=== PATIENT | female | born 1960 | race Caucasian/White ===

== ENCOUNTER 2018-08-23 13:07 | Inpatient (IN) | payer MEDICAID, MEDICARE ==
[~2018-08-23] VITALS: Ht 157.5 cm; Wt 85.0 kg
[2018-08-23] MEDS ORDERED: normal saline 1000ML IV soln IVB ONE (13:15)
[2018-08-23] MEDS ORDERED: LORazepam 2 mg/ml vial IV ONE (13:15)
[2018-08-23 13:35] LABS: BASOPHILS # (AUTO) 0.1 X10'3 (0-0.2); BASOPHILS % (AUTO) 0.9 % (0-1); EOSINOPHILS # (AUTO) 0.1 X10'3 (0-0.9); EOSINOPHILS % (AUTO) 0.5 % (0-6); HEMATOCRIT 42.4 % (35.0-45.0); HEMOGLOBIN 13.8 g/dl (12.0-16.0); LYMPHOCYTES # (AUTO) 1.4 X10'3 (1.1-4.8); LYMPHOCYTES % (AUTO) 8.4 % (21-51); MEAN CORPUSCULAR HEMOGLOBIN 27.8 PG (27.0-31.0); MEAN CORPUSCULAR HGB CONC 32.7 g/dL (33.0-36.5); MEAN CORPUSCULAR VOLUME 85.1 FL (78-98); MONOCYTES # (AUTO) 1.1 X10'3 (0-0.9); MONOCYTES % (AUTO) 6.7 % (2-12); NEUTROPHILS # (AUTO) 13.5 X10'3 (1.8-7.7); NEUTROPHILS % (AUTO) 83.5 % (42-75); PLATELET COUNT 292 X10'3 (140-440); RED BLOOD COUNT 4.98 X10'6 (4.20-5.60); RED CELL DISTRIBUTION WIDTH 14.9 % (11.5-14.5); WHITE BLOOD COUNT 16.2 X10'3 (4.5-11.0)
[2018-08-23 13:43] LABS: ALANINE AMINOTRANSFERASE 21 U/L (12-78); ALBUMIN 4.1 G/DL (3.4-5.0); ALKALINE PHOSPHATASE 84 IU/L (46-116); ANION GAP 15 (8-16); ASPARTATE AMINO TRANSFERASE 32 U/L (10-37); BILIRUBIN,TOTAL 0.8 MG/DL (0.1-1.0); BLOOD UREA NITROGEN 23 MG/DL (7-18); BUN/CREATININE RATIO 14.7 (6.6-38.0); CALCIUM 10.2 MG/DL (8.5-10.1); CHLORIDE 102 MMOL/L (99-107); CREATININE 1.56 MG/DL (0.40-0.90); GLUCOSE 111 MG/DL (70-104); POTASSIUM 3.2 MMOL/L (3.5-5.1); SODIUM 139 MMOL/L (135-145); TOTAL CARBON DIOXIDE 22.3 MMOL/L (24-32); TOTAL PROTEIN 8.2 G/DL (6.4-8.2); eGFR 34 ML/MIN
[2018-08-23 13:52] LABS: ETHANOL < 0.010 GM/DL (0.0-0.010)
[2018-08-23 15:04] LABS: CLARITY,URINE SLIGHTLY CLOUDY (Clear); COLOR,URINE YELLOW (Yellow); GLUCOSE, URINE NEGATIVE (Neg); KETONES,URINE >=80 mg/dl (Neg); LEUKOCYTE ESTERASE ,URINE NEGATIVE (Neg); NITRITES, URINE NEGATIVE (Neg); OCCULT BLOOD,URINE MODERATE (Neg); PH,URINE 5.5 (4.8-8.0); PROTEIN,URINE NEGATIVE (Neg); UA COLLECTION TYPE STRAIGHT CATH; UROBILINOGEN,URINE 0.2 E.U/dL (0.2-1.0)
[2018-08-23 15:09] LABS: URINE AMPHETAMINE SCREEN NEGATIVE (Neg); URINE BARBITUATE SCREEN NEGATIVE (Neg); URINE BENZODIAZEPINES SCREEN NEGATIVE (Neg); URINE CANNABINOID SCREEN POSITIVE (Neg); URINE COCAINE SCREEN NEGATIVE (Neg); URINE METHADONE SCREEN NEGATIVE (Neg); URINE OPIATE SCREEN NEGATIVE (Neg); URINE PHENCYCLIDINE SCREEN NEGATIVE (Neg)
[2018-08-23 15:10] LABS: WBC,URINE 0-4 /HPF (0-4)
[2018-08-23 15:11] LABS: BACTERIA,URINE FEW /HPF (Neg); MUCUS STRANDS FEW /LPF (Neg); SQUAMOUS EPITHELIAL CELL,UR FEW /LPF (FEW)
[2018-08-23] MEDS ORDERED: CefTRIAXone 2gm/D5W 50ml 50 ML IV ONE (15:20)
[2018-08-23] MEDS ORDERED: ondansetron/PF 4mg/2ml inj IV PRN (16:20)
[2018-08-23] MEDS ORDERED: magnesium hydroxide 30ml (MOM) UD suspension PO PRN (16:20)
[2018-08-23] MEDS ORDERED: mag hydrox/Alum hydrox/simeth 30ml oral suspension PO PRN (16:20)
[2018-08-23] MEDS: potassium Cl 20mEq in NS 1,000 ML IV SCH (16:43)
--- NOTE | 2018-08-23 18:03 | NUR ---
Pt new to floor from ED. Transferred up on [facility]. Constant redirection. pt transferred safely into bed. pt is a 51/50/green blanket supplied/SITTER in room at all times. Fluids hanging/L arm. Potassium 20. 100mL/hr. Pt exhibits high and low behaviour, disjointed conversation. (Marty) assessed pt. Cellulitis to E. Leg is red, warm, tender to the touch. No open wounds. Pt needs Tele monitor. Reported off to [facility] nurse to do full assessment/admit/DART if needed. Addendum: 08/23/18 at 1837 by Shawnee Dykes RN Report given to PHILIP Zavaleta to admit pt, fully assess pt.
[2018-08-23 18:39] VITALS: BP 117/57
[2018-08-23] MEDS: heparin, porcine 5000 units/ml vial SQ SCH (21:43)
[2018-08-23] MEDS: LORazepam 2 mg/ml vial IV PRN (21:50)
[2018-08-23 22:00] VITALS: BP 110/67
[2018-08-24] MEDS: LORazepam 2 mg/ml vial IV PRN ×3 (03:14→17:25)
[2018-08-24] MEDS: potassium Cl 20mEq in NS 1,000 ML IV SCH (03:16)
[2018-08-24 06:20] LABS: BASOPHILS # (AUTO) 0.1 X10'3 (0-0.2); BASOPHILS % (AUTO) 1.1 % (0-1); EOSINOPHILS # (AUTO) 0.4 X10'3 (0-0.9); EOSINOPHILS % (AUTO) 4.2 % (0-6); HEMATOCRIT 35.3 % (35.0-45.0); HEMOGLOBIN 11.7 g/dl (12.0-16.0); LYMPHOCYTES # (AUTO) 2.1 X10'3 (1.1-4.8); MEAN CORPUSCULAR HEMOGLOBIN 28.5 PG (27.0-31.0); MEAN CORPUSCULAR HGB CONC 33.3 g/dL (33.0-36.5); MEAN CORPUSCULAR VOLUME 85.7 FL (78-98); MEAN PLATELET VOLUME 8.1 FL (7.4-10.4); MONOCYTES # (AUTO) 0.9 X10'3 (0-0.9); MONOCYTES % (AUTO) 9.3 % (2-12); NEUTROPHILS # (AUTO) 6.2 X10'3 (1.8-7.7); NEUTROPHILS % (AUTO) 63.4 % (42-75); PLATELET COUNT 254 X10'3 (140-440); RED BLOOD COUNT 4.12 X10'6 (4.20-5.60); WHITE BLOOD COUNT 9.7 X10'3 (4.5-11.0)
--- NOTE | 2018-08-24 06:23 | NUR ---
Report given to Cassie PALACIOS.
[2018-08-24 06:37] LABS: ALBUMIN 2.9 G/DL (3.4-5.0); ANION GAP 11 (8-16); BLOOD UREA NITROGEN 15 MG/DL (7-18); CALCIUM 8.3 MG/DL (8.5-10.1); CHLORIDE 108 MMOL/L (99-107); CREATININE 1.15 MG/DL (0.40-0.90); GLUCOSE 87 MG/DL (70-104); POTASSIUM 3.6 MMOL/L (3.5-5.1); SODIUM 142 MMOL/L (135-145); eGFR 48 ML/MIN
[2018-08-24 06:49] VITALS: BP 119/58
[2018-08-24] MEDS: CefTRIAXone 2gm/D5W 50ml 50 ML IV SCH (07:19)
[2018-08-24] MEDS: heparin, porcine 5000 units/ml vial SQ SCH ×2 (07:19→19:59)
[2018-08-24] MEDS: normal saline 1000ml 1,000 ML IV SCH (10:19)
[2018-08-24] MEDS ORDERED: NO HOME MEDS (10:44)
[2018-08-24 12:40] VITALS: BP 124/69
[2018-08-24 18:00] VITALS: BP 109/71
--- NOTE | 2018-08-24 18:10 | NUR ---
Patient in room ORTHO 4013. I have received report from PHILIP Matthews and had the opportunity to ask questions and assume patient care.
[2018-08-24] MEDS: acetaminophen 325mg tablet PO PRN (19:59)
[2018-08-24] MEDS: lactobacillus rhamnosus 10,000 MMU CELLS/CAPSULE PO SCH (19:59)
[2018-08-24] MEDS: ipratropium/albuterol 3ml nebule NEB PRN (20:34)
[2018-08-24 22:00] VITALS: BP 107/68
[2018-08-25] MEDS: normal saline 1000ml 1,000 ML IV SCH ×2 (01:14→16:27)
[2018-08-25] MEDS: ipratropium/albuterol 3ml nebule NEB PRN (02:13)
[2018-08-25] MEDS: acetaminophen 325mg tablet PO PRN ×2 (04:19→19:47)
[2018-08-25 06:00] VITALS: BP 107/69
--- NOTE | 2018-08-25 06:05 | NUR ---
Patient in room ORTHO 4013. I have received report from Shelby PALACIOS and had the opportunity to ask questions and assume patient care.
--- NOTE | 2018-08-25 06:10 | NUR ---
Problems reprioritized. Patient report given, questions answered & plan of care reviewed with PHILIP Silver.
[2018-08-25 06:32] LABS: BASOPHILS # (AUTO) 0.1 X10'3 (0-0.2); EOSINOPHILS # (AUTO) 0.4 X10'3 (0-0.9); EOSINOPHILS % (AUTO) 5.2 % (0-6); HEMATOCRIT 33.7 % (35.0-45.0); HEMOGLOBIN 11.4 g/dl (12.0-16.0); LYMPHOCYTES # (AUTO) 2.4 X10'3 (1.1-4.8); LYMPHOCYTES % (AUTO) 34.1 % (21-51); MEAN CORPUSCULAR HEMOGLOBIN 28.9 PG (27.0-31.0); MEAN CORPUSCULAR HGB CONC 33.7 g/dL (33.0-36.5); MEAN CORPUSCULAR VOLUME 85.7 FL (78-98); MEAN PLATELET VOLUME 7.8 FL (7.4-10.4); MONOCYTES # (AUTO) 0.7 X10'3 (0-0.9); MONOCYTES % (AUTO) 10.2 % (2-12); NEUTROPHILS # (AUTO) 3.4 X10'3 (1.8-7.7); NEUTROPHILS % (AUTO) 49.5 % (42-75); PLATELET COUNT 233 X10'3 (140-440); RED BLOOD COUNT 3.93 X10'6 (4.20-5.60); RED CELL DISTRIBUTION WIDTH 14.9 % (11.5-14.5); WHITE BLOOD COUNT 6.9 X10'3 (4.5-11.0)
[2018-08-25 06:45] LABS: ALBUMIN 2.9 G/DL (3.4-5.0); ANION GAP 5 (8-16); BLOOD UREA NITROGEN 11 MG/DL (7-18); BUN/CREATININE RATIO 10.2 (6.6-38.0); CALCIUM 8.5 MG/DL (8.5-10.1); CHLORIDE 108 MMOL/L (99-107); CREATININE 1.08 MG/DL (0.40-0.90); GLUCOSE 96 MG/DL (70-104); POTASSIUM 3.4 MMOL/L (3.5-5.1); SODIUM 138 MMOL/L (135-145); TOTAL CARBON DIOXIDE 24.6 MMOL/L (24-32); eGFR 52 ML/MIN
[2018-08-25] MEDS: lactobacillus rhamnosus 10,000 MMU CELLS/CAPSULE PO SCH ×2 (07:28→19:47)
[2018-08-25] MEDS: CefTRIAXone 2gm/D5W 50ml 50 ML IV SCH (07:28)
[2018-08-25] MEDS: heparin, porcine 5000 units/ml vial SQ SCH ×2 (07:28→19:47)
[2018-08-25 10:00] VITALS: BP 103/45
[2018-08-25] MEDS ORDERED: traMADol 50MG tablet PO PRN (11:40)
[2018-08-25] MEDS ORDERED: potassium CL 10mEq/100ml bag 100 ML IV PRN (11:40)
[2018-08-25] MEDS ORDERED: potassium Cl 20 mEq SR tablet PO PRN (11:40)
[2018-08-25] MEDS: potassium Cl 20 mEq SR tablet PO PRN ×3 (12:24→20:24)
--- NOTE | 2018-08-25 12:31 | NUR ---
PAGER ID: [phone] MESSAGE: Dr. Huerta, Ms. De La Rosa in [id number], indicated Tramadol gives her a headache. Is there an alternative medication for her? Thank you Adrianne # [phone]
[2018-08-25] MEDS: albuterol 2.5 MG/3 ML nebule NEB SCH ×4 (13:13→23:43)
[2018-08-25] MEDS: HYDROcodone/acetaminophen 5mg/325mg tablet PO PRN (13:36)
[2018-08-25 18:00] VITALS: BP 92/50
--- NOTE | 2018-08-25 18:20 | NUR ---
Patient in room ORTHO 4013. I have received report from PHILIP Silver and had the opportunity to ask questions and assume patient care.
--- NOTE | 2018-08-25 18:22 | NUR ---
Problems reprioritized. Patient report given, questions answered & plan of care reviewed with Shelby PALACIOS.
[2018-08-25 22:00] VITALS: BP 113/44
[2018-08-26] MEDS: HYDROcodone/acetaminophen 5mg/325mg tablet PO PRN (01:15)
[2018-08-26] MEDS: albuterol 2.5 MG/3 ML nebule NEB SCH ×3 (03:00→11:38)
[2018-08-26] MEDS: normal saline 1000ml 1,000 ML IV SCH ×2 (04:04→08:38)
[2018-08-26 06:00] VITALS: BP 117/42
[2018-08-26 06:02] LABS: BASOPHILS # (AUTO) 0.1 X10'3 (0-0.2); BASOPHILS % (AUTO) 0.8 % (0-1); EOSINOPHILS # (AUTO) 0.3 X10'3 (0-0.9); EOSINOPHILS % (AUTO) 4.9 % (0-6); HEMOGLOBIN 11.3 g/dl (12.0-16.0); LYMPHOCYTES # (AUTO) 2.5 X10'3 (1.1-4.8); LYMPHOCYTES % (AUTO) 35.3 % (21-51); MEAN CORPUSCULAR HEMOGLOBIN 28.5 PG (27.0-31.0); MEAN CORPUSCULAR HGB CONC 33.3 g/dL (33.0-36.5); MEAN CORPUSCULAR VOLUME 85.8 FL (78-98); MEAN PLATELET VOLUME 8.1 FL (7.4-10.4); MONOCYTES # (AUTO) 0.6 X10'3 (0-0.9); MONOCYTES % (AUTO) 8.7 % (2-12); NEUTROPHILS # (AUTO) 3.5 X10'3 (1.8-7.7); NEUTROPHILS % (AUTO) 50.3 % (42-75); PLATELET COUNT 254 X10'3 (140-440); RED BLOOD COUNT 3.96 X10'6 (4.20-5.60); RED CELL DISTRIBUTION WIDTH 15.2 % (11.5-14.5)
--- NOTE | 2018-08-26 06:10 | NUR ---
Patient in room ORTHO 4013. I have received report from Shelby PALACIOS and had the opportunity to ask questions and assume patient care.
--- NOTE | 2018-08-26 06:19 | NUR ---
Problems reprioritized. Patient report given, questions answered & plan of care reviewed with PHILIP Silver.
[2018-08-26 06:35] LABS: ALBUMIN 2.9 G/DL (3.4-5.0); ANION GAP 8 (8-16); BLOOD UREA NITROGEN 12 MG/DL (7-18); BUN/CREATININE RATIO 12.5 (6.6-38.0); CALCIUM 8.7 MG/DL (8.5-10.1); CHLORIDE 108 MMOL/L (99-107); CREATININE 0.96 MG/DL (0.40-0.90); GLUCOSE 103 MG/DL (70-104); POTASSIUM 3.9 MMOL/L (3.5-5.1); SODIUM 139 MMOL/L (135-145); TOTAL CARBON DIOXIDE 22.8 MMOL/L (24-32); eGFR 59 ML/MIN
[2018-08-26] MEDS: CefTRIAXone 2gm/D5W 50ml 50 ML IV SCH (08:38)
[2018-08-26] MEDS: heparin, porcine 5000 units/ml vial SQ SCH (08:43)
[2018-08-26] MEDS: lactobacillus rhamnosus 10,000 MMU CELLS/CAPSULE PO SCH (08:43)
--- NOTE | 2018-08-26 08:51 | NUR ---
Patient tele DC'd patient in normal sinus rhythm and has been, normal labs, not heart history.
[2018-08-26 10:00] VITALS: BP 158/89
--- NOTE | 2018-08-26 13:32 | NUR ---
Discharge orders in, pt will be going to [facility] via taxi per neonatal social worker. Pt is unable to check into motel until 15:00, will discharge at that time.
--- NOTE | 2018-08-26 16:53 | NUR ---
[employer] cab picked pt up to drive her to the [facility]. Pt is alert and oriented. All of pt's belongings were returned to pt at discharge - two backpacks and a makeup bag.
== END 2018-08-26 16:54 | disposition home or self-care (01) | DRG 602 ==
LOC: ER 13:07 → ORTHO 4S 17:02 → CMPBEDREQ 20:06
PROVIDERS: ADMIT Family Medicine; ATTEND Internal Medicine
DX: L03.115 Cellulitis of right lower limb (principal); N17.0 Acute kidney failure with tubular necrosis; G93.40 Encephalopathy, unspecified; E87.6 Hypokalemia; F12.90 Cannabis use, unspecified, uncomplicated; F17.210 Nicotine dependence, cigarettes, uncomplicated; M25.561 Pain in right knee; R06.2 Wheezing; M54.5 Low back pain; M25.511 Pain in right shoulder; G89.4 Chronic pain syndrome; N28.9 Disorder of kidney and ureter, unspecified; Z90.710 Acquired absence of both cervix and uterus; Z59.0 Homelessness
CPT/HCPCS: 36415; 70450; 71045; 80048; 80053; 80305; 80320; 81001; 83605; 84145; 84443; 85025; 87040; 87081; 94640; 94760; 96361; 96365; 96375; 97110; 97116; 97161; 97530; 99285; G0378; J0696; J1644; J2060; J3480; J7030